=== PATIENT | male | born 1970 | race Caucasian/White ===

== ENCOUNTER → 2016-04-20 | Outpatient (CLI) | payer BC ==
--- NOTE | 2016-04-20 14:29 | DIAGNOSTIC IMAGING REPORT ---
RIGHT ANKLE 3 VIEWS CLINICAL HISTORY: Right ankle pain. FINDINGS: 3 views of the right ankle are obtained. No prior studies are available for comparison at the time of dictation. The skeletal structures are well mineralized. No fracture is seen. The ankle mortise is intact. There is a joint effusion. Mild soft tissue swelling is present around the ankle. IMPRESSION: Joint effusion and mild soft tissue swelling. No fracture is identified. Electronically signed by: Lloyd Engel M.D. 04/20/2016 2:28 PM Dictated Date/Time: 04/20/2016 2:27 PM
--- NOTE | 2016-04-20 14:38 | DIAGNOSTIC IMAGING REPORT ---
RIGHT FOOT MIN 3 VIEWS ROUTINE CLINICAL HISTORY: RIGHT ANKLE PAIN Right pain COMPARISON: None. DISCUSSION: The bones and joint spaces appear intact. There is no evidence of fracture, dislocation or bony disease. There is no evidence for soft tissue swelling. IMPRESSION: Negative study. Electronically signed by: Remberto Rodriguez M.D. 04/20/2016 2:37 PM Dictated Date/Time: 04/20/2016 2:36 PM
== END | disposition home or self-care (01) ==
LOC: C.RADBC 14:01
PROVIDERS: ATTEND Obstetrics & Gynecology
DX: M25.571 Pain in right ankle and joints of right foot (principal); M25.471 Effusion, right ankle